=== PATIENT | female | born 1990 | race Caucasian/White ===

== ENCOUNTER 2018-12-07 19:22 | Emergency (ER) | payer OTHER ==
[2018-12-07 20:03] LABS: BASOPHILS % (AUTO) 0.5 %; EOSINOPHILS # (AUTO) 0.1 10^3/uL (0.0-0.7); EOSINOPHILS % (AUTO) 1.1 %; HGB - HEMOGLOBIN 12.7 g/dL (12.0-16.0); LYMPHOCYTES # (AUTO) 2.9 10^3/uL (1.5-3.5); LYMPHOCYTES % (AUTO) 29.5 %; MEAN CORPUSCULAR HGB CONC 33.4 g/dL (32.0-36.0); MEAN PLATELET VOLUME 8.7 fL (7.9-10.8); MONOCYTES # (AUTO) 0.6 10^3/uL (0.0-1.0); MONOCYTES % (AUTO) 5.7 %; NEUTROPHILS # (AUTO) 6.2 10^3/uL (1.5-6.6); NEUTROPHILS % (AUTO) 63.2 %; PLT - PLATELET COUNT 187 10^3/uL (130-450); RED BLOOD COUNT 4.08 10^6/uL (4.20-5.40); RED CELL DISTRIBUTION WIDTH 12.8 % (12.0-15.0); WHITE BLOOD COUNT 9.9 x10^3/uL (4.8-10.8)
[2018-12-07 20:19] LABS: ALBUMIN 3.9 g/dL (3.2-5.5); ALBUMIN/GLOBULIN RATIO 1.3 (1.0-2.2); BILIRUBIN,TOTAL 0.4 mg/dL (0.2-1.0); CALCIUM 8.9 mg/dL (8.5-10.3); CREATININE 0.5 mg/dL (0.4-1.0); TOTAL PROTEIN 6.9 g/dL (6.7-8.2)
--- NOTE | 2018-12-07 20:38 | ED Physician Documentation ---
PD HPI FEMALE - Stated complaint Stated Complaint: 5 WEEKS PREG/BLEEDING - Chief complaint Chief Complaint: Abd Pain - History obtained from History obtained from: Patient - History of Present Illness Timing - onset: Today Timing - details: Gradual onset, Waxing and waning Pain level max: 1 Pain level max: 0 Associated symptoms: Pelvic pain (minimal, intermittent cramping during the day today), Other (see below). 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 Today, she passed two [id number] "fleshy colored" material into toilet. She also notes trace pink-tinged "fluid" vaginally during the day today, mostly when she urinates. also has had few, brief, minimal pelvic cramps. Review of Systems Constitutional: denies: Fever GI: denies: Abdominal Pain : reports: Now EGA (4-5 weeks). denies: Dysuria, Frequency Musculoskeletal: denies: Back pain PD PAST MEDICAL HISTORY - Past Medical History Past Medical History: No - Past Surgical History Past Surgical History: Yes HEENT: Myringotomy (tubes) - Present Medications Home Medications: Ambulatory Orders Medication Instructions Recorded Confirmed No Known Home Medications 12/07/18 12/07/18 - Allergies Allergies/Adverse Reactions: Allergies Allergy/AdvReac Type Severity Reaction Status Date / Time Penicillins Allergy Rash Verified 12/07/18 19:29 shellfish derived Allergy Hives Verified 12/07/18 19:29 - Social History Does the pt smoke?: No Smoking Status: Never smoker Does the pt drink ETOH?: No Does the pt have substance abuse?: No PD ED PE NORMAL - Vitals Vital signs reviewed: Yes - General General: Alert and oriented X 3, No acute distress, Well developed/nourished - Cardiac Cardiac: RRR, No murmur - Respiratory Respiratory: No respiratory distress, Clear bilaterally - Abdomen Abdomen: Normal bowel sounds, Soft, Non tender, Non distended - Back Back: No CVA TTP Results - Vitals Vitals: Vital Signs - 24 hr 12/07/18 12/07/18 12/07/18 19:26 21:05 22:49 Temperature 36.7 C 36.8 C Heart Rate 92 98 100 Respiratory 18 16 16 Rate Blood Pressure 134/86 H 124/75 114/71 O2 Saturation 100 98 99 Oxygen O2 Source Room air - Labs Labs: Laboratory Tests 12/07/18 12/07/18 12/07/18 19:56 19:56 19:56 WBC 9.9 RBC 4.08 L Hgb 12.7 Hct 37.9 MCV 93.0 MCH 31.0 MCHC 33.4 RDW 12.8 Plt Count 187 MPV 8.7 Neut # (Auto) 6.2 Lymph # (Auto) 2.9 [place] # (Auto) 0.6 Eos # (Auto) 0.1 Baso # (Auto) 0.0 Absolute Nucleated RBC 0.00 Nucleated RBC % 0.0 Sodium 135 Potassium 3.3 L Chloride 102 Carbon Dioxide 22 Anion Gap 11.0 BUN 9 Creatinine 0.5 Estimated GFR (MDRD) 145 Glucose 89 Calcium 8.9 Total Bilirubin 0.4 AST 18 ALT 10 Alkaline Phosphatase 36 L Total Protein 6.9 Albumin 3.9 Globulin 3.0 Albumin/Globulin Ratio 1.3 Lipase 33 HCG, Quant 94181.00 Urine Color Urine Clarity Urine pH Ur Specific [place] Urine Protein Urine Glucose (UA) Urine Ketones Urine Occult Blood Urine Nitrite Urine Bilirubin Urine Urobilinogen Ur Leukocyte Esterase Ur Microscopic Review Urine Culture Comments Blood Type 12/07/18 12/07/18 19:56 20:55 WBC RBC Hgb Hct MCV MCH MCHC RDW Plt Count MPV Neut # (Auto) Lymph # (Auto) [place] # (Auto) Eos # (Auto) Baso # (Auto) Absolute Nucleated RBC Nucleated RBC % Sodium Potassium Chloride Carbon Dioxide Anion Gap BUN Creatinine Estimated GFR (MDRD) Glucose Calcium Total Bilirubin AST ALT Alkaline Phosphatase Total Protein Albumin Globulin Albumin/Globulin Ratio Lipase HCG, Quant Urine Color YELLOW Urine Clarity CLEAR Urine pH 5.5 Ur Specific [place] <=1.005 Urine Protein NEGATIVE Urine Glucose (UA) NEGATIVE Urine Ketones 15 H Urine Occult Blood NEGATIVE Urine Nitrite NEGATIVE Urine Bilirubin NEGATIVE Urine Urobilinogen 0.2 (NORMAL) Ur Leukocyte Esterase NEGATIVE Ur Microscopic Review NOT INDICATED Urine Culture Comments NOT INDICATED Blood Type A POSITIVE - Rads (name of study) First trimester US Radiology: Prelim report reviewed, See rad report PD MEDICAL DECISION MAKING - ED course Complexity details: reviewed results, re-evaluated patient, considered differential, d/w patient Departure - Departure Disposition: 01 Home, Self Care Clinical Impression: Threatened Condition: Good Instructions: ED Miscarriage Poss Follow-Up: Nicole Brown MD [Primary Care Provider] - (Contact your primary care provider (general practitioner or court bailiff) to arrange follow-up) Discharge Date/Time: 12/07/18 22:50
[2018-12-07] MEDS ORDERED: ALPRAZolam 0.25 MG TABLET PO STA (20:41)
[2018-12-07 21:08] LABS: BILIRUBIN,URINE NEGATIVE (NEGATIVE); GLUCOSE, URINE (UA) NEGATIVE (NEGATIVE); KETONES,URINE (UA) 15 mg/dL (NEGATIVE); LEUKOCYTE ESTERASE, URINE NEGATIVE (NEGATIVE); NITRITE,URINE NEGATIVE (NEGATIVE); OCCULT BLOOD,URINE NEGATIVE (NEGATIVE); PH,URINE 5.5 PH (5.0-7.5); PROTEIN,URINE NEGATIVE (NEGATIVE); UROBILINOGEN,URINE 0.2 (NORMAL) E.U./dL (NORMAL)
[2018-12-07 21:18] LABS: CLARITY,URINE CLEAR (CLEAR)
--- NOTE | 2018-12-07 22:16 | Ultrasound Report ---
Reason: preg 5w bleed Procedure Date: 12/07/2018 Accession Number: [id number] / [id number] Procedure: US - OB Transvaginal CPT Code: FULL RESULT: EXAM: FIRST TRIMESTER OBSTETRIC ULTRASOUND (Less than 11 weeks) EXAM DATE: 12/07/2018 09:14 PM. CLINICAL HISTORY: Preg 5w bleed. LMP: 10/28/2018. COMPARISONS: None. TECHNIQUE: Transabdominal and transvaginal ultrasound examination with static image documentation. CLINICAL DATES: EGA 5 weeks, 5 days with FUAD 08/22/2019 based on LMP. ASSESSMENT: Gestational Sac: Single intrauterine. Mean gestational sac diameter: 13 mm = 5 weeks, 3 days. Embryo: CRL (crown-rump length) not visualized. Yolk sac: 3.7 mm. Amniotic fluid: Not accurately assessed at this gestational age. Early placenta: Not visible at this gestational age. Other: 0.7 x 0.9 x 0.7 cm perigestational fluid collection noted.. MATERNAL STRUCTURES: Uterus: Anteverted. Unremarkable. Cervix: Closed. Nabothian cyst. Right Ovary/Adnexa: The ovary measures 2.4 x 1.2 x 1.6 cm, volume 2.4 cc. Unremarkable. Left Ovary/Adnexa: The ovary measures 2.9 x 1.8 x 2.7 cm, volume 7.4 cc. Unremarkable. Free Fluid: Trace pelvic free fluid.. Other: None. IMPRESSION: 1. Intrauterine gestational sac containing a yolk sac with a gestational age of 5 weeks, 3 days which compares with a gestational age of 5 weeks, 5 days based on stated dating/LMP. Embryo not identified although may not yet be identified at this gestational sac size. Therefore continued correlation with beta m hCG and follow-up ultrasound in 2-3 weeks is recommended. 2. Small yue-gestational hemorrhage. RADIA
--- NOTE | 2018-12-07 22:16 | Ultrasound Report ---
Reason: preg 5w bleed Procedure Date: 12/07/2018 Accession Number: [id number] / [id number] Procedure: US - OB First Trimester CPT Code: FULL RESULT: EXAM: FIRST TRIMESTER OBSTETRIC ULTRASOUND (Less than 11 weeks) EXAM DATE: 12/07/2018 09:14 PM. CLINICAL HISTORY: Preg 5w bleed. LMP: 10/28/2018. COMPARISONS: None. TECHNIQUE: Transabdominal and transvaginal ultrasound examination with static image documentation. CLINICAL DATES: EGA 5 weeks, 5 days with FUAD 08/22/2019 based on LMP. ASSESSMENT: Gestational Sac: Single intrauterine. Mean gestational sac diameter: 13 mm = 5 weeks, 3 days. Embryo: CRL (crown-rump length) not visualized. Yolk sac: 3.7 mm. Amniotic fluid: Not accurately assessed at this gestational age. Early placenta: Not visible at this gestational age. Other: 0.7 x 0.9 x 0.7 cm perigestational fluid collection noted.. MATERNAL STRUCTURES: Uterus: Anteverted. Unremarkable. Cervix: Closed. Nabothian cyst. Right Ovary/Adnexa: The ovary measures 2.4 x 1.2 x 1.6 cm, volume 2.4 cc. Unremarkable. Left Ovary/Adnexa: The ovary measures 2.9 x 1.8 x 2.7 cm, volume 7.4 cc. Unremarkable. Free Fluid: Trace pelvic free fluid.. Other: None. IMPRESSION: 1. Intrauterine gestational sac containing a yolk sac with a gestational age of 5 weeks, 3 days which compares with a gestational age of 5 weeks, 5 days based on stated dating/LMP. Embryo not identified although may not yet be identified at this gestational sac size. Therefore continued correlation with beta m hCG and follow-up ultrasound in 2-3 weeks is recommended. 2. Small yue-gestational hemorrhage. RADIA
[2018-12-07 22:50] VITALS: BP 114/71
== END 2018-12-07 22:50 | disposition home or self-care (01) ==
LOC: ED 19:22
DX: O20.0 Threatened abortion (principal); Z3A.01 Less than 8 weeks gestation of pregnancy
CPT/HCPCS: 36415; 76801; 76817; 80053; 81001; 81003; 83690; 84702; 85025; 86900; 86901; 87086; 99283

== ENCOUNTER 2019-02-24 20:52 | Emergency (ER) | payer OTHER ==
--- NOTE | 2019-02-24 21:03 | ED Physician Documentation ---
PD HPI HEENT - Stated complaint Stated Complaint: 17 WKS/DIZZY - Chief complaint Chief Complaint: General - History obtained from History obtained from: Patient - History of Present Illness Timing - onset: How many hours ago (1), Today Timing - duration: Hours (1) Timing - details: Abrupt onset (She was lying on the couch and turned to the side and felt an onset of room spinning dizziness. She had some slight nausea with it. There is no vomiting. She denied any headache. She had not had any head cold type symptoms. She sat up and held still and felt improved though still some very mild dizziness. She laid back down after a few minutes and noticed the dizziness to feel worse laying flat. She does feel it worse with head motion as well. No other focal weaknesses visual changes trouble speaking nor ataxia.) Location: Other (vertigo with head movement abruptly about an hour ago) Worsens: Position (worse with lying down, better sitting up, and better with holding head still.) Associated symptoms: No: Fever, Congestion, Rhinorrhea Similar symptoms before: Other (slight lightheaded with standing up quickly during , but has not had vertigo prior.) Recently seen: Clinic (normal visit last week, with ultrasound.) Review of Systems Constitutional: denies: Fever, Chills Eyes: denies: Loss of vision, Decreased vision Ears: denies: Loss of hearing, Tinnitus/ringing Nose: denies: Rhinorrhea / runny nose, Congestion, Sinus pressure / pain Neurologic: denies: Focal weakness, Numbness, Near syncope, Altered mental status, Headache, Head injury PD PAST MEDICAL HISTORY - Past Medical History Cardiovascular: None Respiratory: None Neuro: None Endocrine/Autoimmune: None - Past Surgical History Past Surgical History: Yes HEENT: Myringotomy (tubes) - Present Medications Home Medications: Ambulatory Orders Medication Instructions Recorded Confirmed Cetirizine [ZyrTEC] 10 mg PO DAILY #15 tablet 02/24/19 Meclizine [Antivert] 12.5 mg PO Q6H PRN #20 tablet 02/24/19 dexAMETHasone [Decadron] 4 mg PO DAILY #5 tablet 02/24/19 - Allergies Allergies/Adverse Reactions: Allergies Allergy/AdvReac Type Severity Reaction Status Date / Time Penicillins Allergy Rash Verified 02/24/19 20:59 shellfish derived Allergy Hives Verified 02/24/19 20:59 - Social History Does the pt smoke?: No Smoking Status: Never smoker Does the pt drink ETOH?: No Does the pt have substance abuse?: No PD ED PE NORMAL - Vitals Vital signs reviewed: Yes - General General: Alert and oriented X 3, No acute distress, Well developed/nourished - HEENT HEENT: PERRL, EOMI (with nystagmus to the left), Ears normal, Moist mucous membranes, Pharynx benign - Neck Neck: Supple, no meningeal sign, No adenopathy, No JVD - Cardiac Cardiac: RRR, No murmur - Respiratory Respiratory: Clear bilaterally - Abdomen Abdomen: Soft, Non tender, Other (bedside U/S showing normal IUP c/w dates, and has good amniotic fluid amount, movement and FHR. 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, No motor deficit, No sensory deficit, Normal speech, Other Eye Opening: Spontaneous Motor: Obeys Commands Verbal: Oriented GCS Score: 15 Results - Vitals Vitals: Vital Signs - 24 hr 02/24/19 02/24/19 20:56 22:44 Temperature 36.2 C L Heart Rate 95 87 Respiratory 19 18 Rate Blood Pressure 135/78 H 120/70 O2 Saturation 100 100 Oxygen O2 Source Room air - Labs Labs: Laboratory Tests 02/24/19 02/24/19 21:36 22:00 Sodium 139 Potassium 3.5 Chloride 105 Carbon Dioxide 22 Anion Gap 12.0 BUN 9 Creatinine 0.4 Estimated GFR (MDRD) 187 Glucose 93 Calcium 9.4 Total Bilirubin 0.5 AST 14 ALT 12 Alkaline Phosphatase 31 L Total Protein 6.7 Albumin 3.5 Globulin 3.2 Albumin/Globulin Ratio 1.1 Lipase 30 Urine Color YELLOW Urine Clarity CLEAR Urine pH 7.0 Ur Specific [place] <=1.005 Urine Protein NEGATIVE Urine Glucose (UA) NEGATIVE Urine Ketones NEGATIVE Urine Occult Blood NEGATIVE Urine Nitrite NEGATIVE Urine Bilirubin NEGATIVE Urine Urobilinogen 0.2 (NORMAL) Ur Leukocyte Esterase NEGATIVE Ur Microscopic Review NOT INDICATED Urine Culture Comments NOT INDICATED PD MEDICAL DECISION MAKING - ED course Complexity details: reviewed results (Bedside ultrasound showed a normal intrauterine consistent with dates with good amount of amniotic fluid and normal movement and heartbeat.), considered differential (It sounds like peripheral vertigo related to position and when she turned lying down. She does have some nystagmus. She has no other symptoms. No medications to cause it. No injury. She does not have sinusitis type symptoms.), d/w patient Departure - Departure Disposition: 01 Home, Self Care Clinical Impression: Vertigo Condition: Stable Record reviewed to determine appropriate education?: Yes Instructions: ED Vertigo Unspecified Follow-Up: Nicole Brown MD [Primary Care Provider] - Prescriptions: Cetirizine [ZyrTEC] 10 mg PO DAILY #15 tablet dexAMETHasone [Decadron] 4 mg PO DAILY #5 tablet Meclizine [Antivert] 12.5 mg PO Q6H PRN #20 tablet PRN Reason: Vertigo Comments: Your electrolytes and blood sugar are good. Your urine does not show signs of infection. This sounds like inner ear vertigo and presumably from some congestion or allergies with fluid buildup. Use meclizine as needed for dizziness. I would suggest cetirizine antihistamine daily for several days to week or so. Decadron steroid for inflammation of the inner ear daily for a few days. I would anticipate this improving over the next several days. Recheck if this continues or if other symptoms develop with it. Discharge Date/Time: 02/24/19 22:47
[2019-02-24] MEDS ORDERED: DEXAMETHASONE 10 MG/ML VIAL PO STA (21:29)
[2019-02-24] MEDS ORDERED: CETIRIZINE 10 MG TABLET PO STA (21:29)
[2019-02-24] MEDS ORDERED: MECLIZINE 12.5 MG TABLET PO STA (21:29)
[2019-02-24] MEDS ORDERED: CHERRY SYRUP 10 ML UDC PO ONE (21:29)
[2019-02-24 22:00] LABS: ALBUMIN 3.5 g/dL (3.2-5.5); ALBUMIN/GLOBULIN RATIO 1.1 (1.0-2.2); BILIRUBIN,TOTAL 0.5 mg/dL (0.2-1.0); CALCIUM 9.4 mg/dL (8.5-10.3); CREATININE 0.4 mg/dL (0.4-1.0); TOTAL PROTEIN 6.7 g/dL (6.7-8.2)
[2019-02-24 22:07] LABS: BILIRUBIN,URINE NEGATIVE (NEGATIVE); GLUCOSE, URINE (UA) NEGATIVE (NEGATIVE); KETONES,URINE (UA) NEGATIVE (NEGATIVE); LEUKOCYTE ESTERASE, URINE NEGATIVE (NEGATIVE); NITRITE,URINE NEGATIVE (NEGATIVE); OCCULT BLOOD,URINE NEGATIVE (NEGATIVE); PROTEIN,URINE NEGATIVE (NEGATIVE); UROBILINOGEN,URINE 0.2 (NORMAL) E.U./dL (NORMAL)
[2019-02-24 22:08] LABS: CLARITY,URINE CLEAR (CLEAR)
[2019-02-24 22:45] VITALS: BP 120/70
== END 2019-02-24 22:47 | disposition home or self-care (01) ==
LOC: ED 20:52
DX: O99.89 Other specified diseases and conditions complicating pregnancy, childbirth and the puerperium (principal); R42 Dizziness and giddiness; Z3A.17 17 weeks gestation of pregnancy
CPT/HCPCS: 36415; 80053; 81003; 83690; 99283; 99284; A9270; 81001; 87086

== ENCOUNTER 2019-07-05 09:00 | Outpatient (CLI) | payer OTHER ==
[2019-07-06 20:01] LABS: TRICHOMONAS VAGINALIS DNA NEGATIVE (NEGATIVE)
== END 2019-07-05 23:59 | disposition home or self-care (01) ==
LOC: LAB.R 09:00
PROVIDERS: ATTEND Nurse Practitioner Obstetrics & Gynecology
DX: Z36.85 Encounter for antenatal screening for Streptococcus B (principal)
CPT/HCPCS: 87491; 87591; 87661; 87797

== ENCOUNTER 2019-07-13 14:29 | Outpatient (CLI) | payer OTHER ==
[2019-07-13 15:03] VITALS: BP 131/75
--- NOTE | 2019-07-13 18:45 | PROCEDURE REPORT ---
- HPI Diagnosis/Indication for NST: Decreased movement Current EDU 08/04/19 Gestation 36 Weeks and 6 Days 1 Para 0 Vital Signs Temperature 36.8 C 07/13/19 15:01 Heart Rate 98 07/13/19 15:01 Respiratory Rate 16 07/13/19 15:01 Blood Pressure 131/75 H 07/13/19 15:01 O2 Saturation 100 07/13/19 15:01 Temperature 36.8 C 07/13/19 15:01 Heart Rate 98 07/13/19 15:01 Respiratory Rate 16 07/13/19 15:01 Blood Pressure 131/75 H 07/13/19 15:01 O2 Saturation 100 07/13/19 15:01 - NST Procedure NST Procedure Start Date 07/13/19 Start Time 14:40 Stop Time 15:05 Vibroacoustic Stimulation Used No Patient States Movement Yes: decreased - Results and Plan Plan: Brina presents to [facility] for NST after her routine visit when she reports decreased movement over the past couple of days. NST reactive. Baseline 140s, moderate variability, + accels, no decels Pt was released home with precautions and advised to complete daily FM monitoring. She verbalized understanding and agrees to above plan. She denies further questions or concerns at this time. NST performed and read 07/13/2019 FINAL DIAGNOSIS Decreased movement, third trimester
== END 2019-07-13 15:25 | disposition home or self-care (01) ==
LOC: WFO 14:29 → FBP 14:31 → WFO 15:25
PROVIDERS: ATTEND Nurse Practitioner Obstetrics & Gynecology
DX: O36.8130 Decreased fetal movements, third trimester, not applicable or unspecified (principal); Z3A.36 36 weeks gestation of pregnancy
CPT/HCPCS: 59025

== ENCOUNTER 2020-02-08 12:24 | Emergency (ER) | payer OTHER ==
--- NOTE | 2020-02-08 13:12 | ED Physician Documentation ---
PD HPI CHEST PAIN - Stated complaint Stated Complaint: CHEST TIGHTNESS - Chief complaint Chief Complaint: Abd Pain - History obtained from History obtained from: Patient - Additional information Additional information: Today she is noticed epigastric tightening. She describes it as a 1 second episode of tightness without pain in the epigastrium. It is not associated with nausea or shortness of breath. No relationship to eating. It is happened several times but again only lasted as about a second at a time. No pedal edema or calf pain. Review of Systems Constitutional: reports: Reviewed and negative Throat: reports: Reviewed and negative Cardiac: reports: Reviewed and negative PD PAST MEDICAL HISTORY - Past Medical History Cardiovascular: None Respiratory: None Neuro: None Endocrine/Autoimmune: None - Past Surgical History Past Surgical History: Yes HEENT: Myringotomy (tubes) - Present Medications Home Medications: Ambulatory Orders Medication Instructions Recorded Confirmed Cetirizine [ZyrTEC] 10 mg PO DAILY #15 tablet 02/24/19 Meclizine [Antivert] 12.5 mg PO Q6H PRN #20 tablet 02/24/19 dexAMETHasone [Decadron] 4 mg PO DAILY #5 tablet 02/24/19 - Allergies Allergies/Adverse Reactions: Allergies Allergy/AdvReac Type Severity Reaction Status Date / Time Penicillins Allergy Rash Verified 02/08/20 12:33 shellfish derived Allergy Hives Verified 02/08/20 12:33 - Social History Does the pt smoke?: No Smoking Status: Never smoker Does the pt drink ETOH?: No Does the pt have substance abuse?: No PD ED PE NORMAL - Vitals Vital signs reviewed: Yes - General General: Alert and oriented X 3, No acute distress - Neck Neck: Supple, no meningeal sign, No bony TTP - Cardiac Cardiac: RRR, No murmur - Respiratory Respiratory: No respiratory distress, Clear bilaterally - Abdomen Abdomen: Non tender - Extremities Extremities: No edema, No calf tenderness / cord - Neuro Neuro: Alert and oriented X 3, Normal speech Results - Vitals Vitals: Vital Signs - 24 hr 02/08/20 02/08/20 12:26 12:31 Temperature 36.4 C L Heart Rate 85 82 Respiratory 18 16 Rate Blood Pressure 140/101 H 139/78 H O2 Saturation 100 100 Oxygen O2 Source Room air - EKG (time done) 1256 Rate: Rate (enter#) (84) Rhythm: NSR [place]: Normal Intervals: Normal [place] QRS: Normal Ischemia: Normal ST segments - Labs Labs: Laboratory Tests 02/08/20 02/08/20 13:28 13:28 VBG pH 7.427 H VBG pCO2 41.5 VBG pO2 40.2 VBG HCO3 26.7 VBG Total CO2 28.0 VBG O2 Saturation 77.2 VBG Base Excess 2.2 H Sodium 140 Potassium 3.6 Chloride 102 Carbon Dioxide 25 Anion Gap 13.0 BUN 14 Creatinine 0.7 Estimated GFR (MDRD) 98 Glucose 87 Calcium 9.4 Magnesium 2.0 Total Bilirubin 0.6 AST 18 ALT 16 Alkaline Phosphatase 68 Total Protein 8.3 H Albumin 4.9 Globulin 3.4 Albumin/Globulin Ratio 1.4 Lipase 39 PD MEDICAL DECISION MAKING - ED course ED course: 29-year-old woman with epigastric painless brief tightening. Bedside ultrasound demonstrates no cholelithiasis. No ectopy on the monitor while here which she was symptom-free in the department. HEART score zero Departure - Departure Disposition: 01 Home, Self Care Clinical Impression: Palpitations with regular cardiac rhythm Condition: Good Record reviewed to determine appropriate education?: Yes Instructions: ED Chest Pain NonCardiac Comments: From your description, sounds like either premature ventricular contractions or esophageal spasm, no evidence of dangerous illness here. Return if worse. Follow-up with your primary care physician as well.
[2020-02-08 13:32] LABS: VBG BASE EXCESS 2.2 mmol/L (-2 - +2); VBG PCO2 41.5 mmHg (41-51); VBG PH 7.427 (7.31-7.41); VBG PO2 40.2 mmHg (25-47)
[2020-02-08 13:46] LABS: ALBUMIN 4.9 g/dL (3.2-5.5); ALBUMIN/GLOBULIN RATIO 1.4 (1.0-2.2); BILIRUBIN,TOTAL 0.6 mg/dL (0.2-1.0); CALCIUM 9.4 mg/dL (8.5-10.3); CREATININE 0.7 mg/dL (0.4-1.0); TOTAL PROTEIN 8.3 g/dL (6.7-8.2)
[2020-02-08 14:26] VITALS: BP 122/78
== END 2020-02-08 14:26 | disposition home or self-care (01) ==
LOC: ED 12:24
DX: R00.2 Palpitations (principal)
CPT/HCPCS: 36415; 80053; 82803; 83690; 83735; 93005; 99284

== ENCOUNTER 2021-06-05 10:01 | Emergency (ER) | payer OTHER ==
[2021-06-05 11:09] VITALS: BP 117/89
--- NOTE | 2021-06-05 12:09 | XRAY Report ---
PROCEDURE: Chest 1 View X-Ray INDICATIONS: chest pain TECHNIQUE: One view of the chest was acquired. COMPARISON: None. FINDINGS: SUPPORT DEVICES: None. LUNGS/PLEURA: No focal consolidation, pleural effusion or space-occupying pneumothorax. MEDIASTINUM: The cardiomediastinal silhouette is within normal limits. BONES/SOFT TISSUES: No acute abnormality. IMPRESSION: 1.No acute cardiopulmonary abnormality. Reviewed by: Lauri Greer MD on 06/05/2021 12:08 PM PDT Approved by: Lauri Greer MD on 06/05/2021 12:08 PM PDT Station ID: [id number]
--- NOTE | 2021-06-05 12:34 | ED Physician Documentation ---
PD HPI CHEST PAIN - Stated complaint Stated Complaint: CHEST PX/LIGHT HEADED - Chief complaint Chief Complaint: Cardiac - History obtained from History obtained from: Patient - Additional information Additional information: Pt comes to the ED with CC of a brief episode of CP that lasted some seconds, then went away. However, pt states she gets anxious very easily, and that the pain set off a panic attack. She states that even though the pain is gone, she just can't stop worrying that something worse is wrong. She denies any health issues otherwise, and is not a smoker. No lower extremity swelling or pain. No SOB. Pt states her family has "heart problems", so she worries about it for herself. When asked for clarification, pt notes that her mom has mitral regurgitation and her brother has a dysrhythmia (unspecified). Two of her grandparents had MIs in their 60's-70's, and her uncle had an ND in his 50's, but was a smoker and an alcoholic. Pt states she is not on medication for anxi ety. Review of Systems Ten Systems: 10 systems reviewed and negative Constitutional: reports: Reviewed and negative Eyes: reports: Reviewed and negative Ears: reports: Reviewed and negative Nose: reports: Reviewed and negative Throat: reports: Reviewed and negative Cardiac: reports: Chest pain / pressure Respiratory: reports: Reviewed and negative GI: reports: Reviewed and negative : reports: Reviewed and negative Skin: reports: Reviewed and negative Musculoskeletal: reports: Reviewed and negative Neurologic: reports: Reviewed and negative Psychiatric: reports: Anxiety Endocrine: reports: Reviewed and negative Immunocompromised: reports: Reviewed and negative PD PAST MEDICAL HISTORY - Past Medical History Past Medical History: Yes Cardiovascular: None Respiratory: None Neuro: None Endocrine/Autoimmune: None GI: None 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 HEENT: None Psych: Anxiety Musculoskeletal: None Derm: None - Past Surgical History Past Surgical History: Yes /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 HEENT: Myringotomy (tubes) - Present Medications Home Medications: Ambulatory Orders Medication Instructions Recorded Confirmed Cetirizine [ZyrTEC] 10 mg PO DAILY #15 tablet 02/24/19 Meclizine [Antivert] 12.5 mg PO Q6H PRN #20 tablet 02/24/19 dexAMETHasone [Decadron] 4 mg PO DAILY #5 tablet 02/24/19 - Allergies Allergies/Adverse Reactions: Allergies Allergy/AdvReac Type Severity Reaction Status Date / Time Penicillins Allergy Rash Verified 06/05/21 10:11 shellfish derived Allergy Hives Verified 06/05/21 10:11 - Social History Does the pt smoke?: No Smoking Status: Never smoker Does the pt drink ETOH?: No Does the pt have substance abuse?: No - Immunizations Immunizations are current?: No Immunizations: TDAP current <10years - POLST Patient has POLST: No Results - Vitals Vitals: Oxygen O2 Source Room air - EKG (time done) 1018 Rate: Rate (enter#) Rhythm: NSR [place]: Normal Intervals: Normal [place] QRS: Normal Ischemia: Normal ST segments Compare to prior EKG: Old EKG unavailable Computer interpretation: Agree with computer - Rads (name of study) CXR Radiology: Final report received, EMP read indepedently, See rad report (nad) PD MEDICAL DECISION MAKING - ED course Complexity details: reviewed results, re-evaluated patient, considered differential, d/w patient ED course: I d/w pt that she is extremely low-risk for CAD. The likelihood of other emergent causes of CP, based on history, physical and EKG/CXR is also low. We have discussed management of her anxiety and the usual indications for return. Departure - Departure Disposition: 01 Home, Self Care Clinical Impression: Anxiety Chest pain Qualifiers: Chest pain type: unspecified Qualified Code(s): R07.9 - Chest pain, unspecified Condition: Stable Instructions: ED Chest Pain NonCardiac Comments: Your x-ray and EKG look great. As we discussed, you were extremely low risk for any serious cause of chest pain, especially heart attack. Please follow-up with your primary doctor for further concerns. Your pain today does not signify anything serious and there is no evidence on the testing we have done here in the emergency department to indicate an emergent condition either. Discharge Date/Time: 06/05/21 12:39
== END 2021-06-05 12:39 | disposition home or self-care (01) ==
LOC: ED 10:01
DX: F41.9 Anxiety disorder, unspecified (principal)
CPT/HCPCS: 93005; 99282; 99283